=== PATIENT | male | born 1980 | race Caucasian/White ===

== ENCOUNTER 2016-09-02 15:14 | Emergency (ER) | payer OTHER ==
[~2016-09-02] VITALS: Wt 118.0 kg
[~2016-09-02 15:14] MED LIST: ACET325T33 PO; CLIN-73 PO; NAPR-260 PO; THERAFLU
[2016-09-02] MEDS ORDERED: ACETAMINOPHEN 500 MG TAB PO STA (17:55)
[2016-09-02] MEDS ORDERED: IBUPROFEN 800 MG TAB PO ONE (18:00)
--- NOTE | 2016-09-02 18:05 | ERD ---
ER Documentation Chief Complaint Date/Time DATE: 09/02/16 TIME: 18:04 Chief Complaint FEVER AND COUGHING FOR THE PAST 3 DAYS. NO DISTRESS HPI 35 year old male otherwise healthy comes in with a fever, cough x 2-3 days. He has developed a dry cough, chest pain with cough, for 3 days. No shortness of breath. He is here with a sick contact, his son who is also here for cough and fever. ROS All systems reviewed and are negative except as per history of present illness. Medications Home Meds Active Scripts Naproxen* (Naprosyn*) 500 Mg Tablet, 500 MG PO BID Y for PAIN AND/OR INFLAMMATION, #30 TAB Prov:SOLEDAD MILELR PA-C 09/02/16 Oseltamivir Phosphate* (Tamiflu*) 75 Mg Capsule, 75 MG PO BID for 5 Days, CAP Prov:SOLEDAD MILLER PA-C 09/02/16 Acetaminophen* (Tylenol*) 325 Mg Tablet, 2 TAB PO Q6 Y for PAIN AND OR ELEVATED TEMP, #20 TAB Prov:ANKIT SIMON DO 04/19/16 Naproxen* (Naprosyn*) 500 Mg Tablet, 500 MG PO BID Y for PAIN AND/OR INFLAMMATION, #30 TAB Prov:ANKIT SIMON DO 04/19/16 Clindamycin Hcl* (Clindamycin Hcl*) 300 Mg Capsule, 300 MG PO TID for 7 Days, CAP Prov:ANKIT SIMON DO 04/19/16 Reported Medications [Theraflu] No Conflict Check 10/27/10 Allergies Allergies: Coded Allergies: No Known Drug Allergies (Verified Allergy, Mild, 10/30/10) PMhx/Soc History of Surgery: No Anesthesia Reaction: No Hx Neurological Disorder: No Hx Respiratory Disorders: No Hx Cardiac Disorders: No Hx Psychiatric Problems: No Hx Miscellaneous Medical Probl: No Hx Alcohol Use: No Hx Substance Use: No Hx Tobacco Use: No Physical Exam Vitals Vital Signs Date Time Temp Pulse Resp B/P Pulse Ox O2 Delivery O2 Flow Rate FiO2 09/02/16 15:18 102.1 115 22 130/74 98 Physical Exam General: Well-developed, well-nourished. The patient appears in no acute distress. HEENT: Head is normocephalic, atraumatic. No scleral icterus. Pupils are equal , round, and reactive. Oral mucous membranes are moist. No pharyngeal erythema. Neck: Supple. Nontender. Lungs: Clear to auscultation. Normal air movement. Heart: Regular rate and rhythm. S1 and S2 are normal. No murmurs, gallops, or rubs. Abdomen: Soft, nontender, nondistended. Bowel sounds are normoactive. Extremities: No clubbing or cyanosis. Normal pulses. Moving extremities x 4. No weakness. Neurologic: Alert and oriented 3. No focal deficits. Skin: Normal turgor. No rash or lesions. Results 24 hrs Current Medications Medications (Trade) Dose Ordered Sig/Jamal Route PRN Reason Start Time Stop Time Status Last Admin Dose Admin Acetaminophen (Tylenol Tab) 1,000 mg ONCE STAT PO 09/02/16 17:55 09/02/16 17:57 DC 09/02/16 17:59 Ibuprofen (Motrin) 800 mg ONCE ONCE PO 09/02/16 18:00 09/02/16 18:01 DC 09/02/16 17:59 PROCEDURE: XR Chest. CLINICAL INDICATION: Cough, fever, body aches. TECHNIQUE: PA erect view of the chest was obtained. COMPARISON: None. FINDINGS: The cardiomediastinal silhouette is within normal limits. The lungs are clear. There is no evidence for pleural effusion, pneumothorax or pulmonary vascular congestion. The osseous structures are intact with no evidence for acute abnormality. RPTAT:HJJR IMPRESSION: No evidence for acute intrathoracic pathology. Physician Hernando Date Time Electronically viewed and signed by Grupo Jackson Physician on 09/02/2016 18:17 JR/ CC: SOLEDAD MILLER PA-C Procedures/MDM ED course: He was given Tylenol and Motrin. MDM: 35-year-old male comes with fever and cough for 2-3 days, who comes in with an acute upper respiratory infection, presumed viral. Chest x-ray was normal. The patient has a differential diagnosis of a viral upper respiratory infection, bacterial upper respiratory infection, bronchitis, pneumonia, pharyngitis, laryngitis, epiglottitis, croup, pneumonia. Patient has a normal pulmonary examination, clear breath sounds, normal pulse oximetry, with no corrective measures needed at this time. Fluids, rest, antipyretics were encouraged. Discharge her Tamiflu and encouraged to take Naprosyn for pain as well as Tylenol at home for fever. Departure Diagnosis: Primary Impression: Acute URI Condition: Good SOLEDAD MILLER PA-C Sep 02, 2016 18:05
--- NOTE | 2016-09-02 18:17 | RADRPT ---
PROCEDURE: XR Chest. CLINICAL INDICATION: Cough, fever, body aches. TECHNIQUE: PA erect view of the chest was obtained. COMPARISON: None. FINDINGS: The cardiomediastinal silhouette is within normal limits. The lungs are clear. There is no evidenc e for pleural effusion, pneumothorax or pulmonary vascular congestion. The osseous structures are i ntact with no evidence for acute abnormality. RPTAT:HJJR IMPRESSION: No evidence for acute intrathoracic pathology. Physician Hernando Date Time Electronically viewed and signed by Physician Hernando on 09/02/2016 18:17 JR/
[2016-09-02] MEDS ORDERED: NAPR-260 PO (18:33)
[2016-09-02] MEDS ORDERED: OSLT75C PO (18:33)
[2016-09-02 19:12] VITALS: BP 110/59; PULSE 83; RESP 18; TEMP 98.6
== END 2016-09-02 19:12 | disposition home or self-care (01) ==
LOC: FTE 15:14
DX: J06.9 Acute upper respiratory infection, unspecified (principal)
CPT/HCPCS: 71010; Z7610

== ENCOUNTER 2016-09-23 13:30 | Emergency (ER) | payer OTHER ==
[~2016-09-23] VITALS: Wt 117.0 kg
[~2016-09-23 13:30] MED LIST changes: +OSLT75C PO
[2016-09-23] MEDS ORDERED: KETOROLAC 60 MG INJ IM STA (16:51)
[2016-09-23] MEDS ORDERED: HYDROmorphONE 1 MG/ML SYG IM STA (16:51)
[2016-09-23] MEDS ORDERED: ONDANSETRON (ODT) 4 MG TAB ODT STA (16:51)
[2016-09-23] MEDS ORDERED: HYDR-902 PO (17:32)
[2016-09-23] MEDS ORDERED: TRAM-40 PO (17:32)
--- NOTE | 2016-09-23 17:35 | ERD ---
ER Documentation Chief Complaint Date/Time DATE: 09/23/16 TIME: 17:33 Chief Complaint LOW BACK PAIN RADIATING TO RIGHT SIDE, NON TRAUMATIC. NO NEUROMOTOR DEF HPI This 35-year-old male presents with a 2 day history of pain in his lower back rating to his right buttock. Denies any weakness but has significant pain and difficulty walking. Denies any bowel incontinence but complains of some intermittent hesitation with urine. Denies any numbness. Denies any recent injury or trauma. He has a history of sciatica. He takes ibuprofen at home. 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 ROS All systems reviewed and are negative except as per history of present illness. Medications Home Meds Active Scripts Tramadol Hcl* (Ultram*) 50 Mg Tablet, 50 MG PO Q6H Y for PAIN, #20 TAB Prov:EMILY ADORNO MD 09/23/16 Hydrocodone/Acetaminophen ([place] 10-325 Tablet) 1 Each Tablet, 1 EACH PO QID, # 14 TAB Take for pain at night. Prov:EMILY ADORNO MD 09/23/16 Naproxen* (Naprosyn*) 500 Mg Tablet, 500 MG PO BID Y for PAIN AND/OR INFLAMMATION, #30 TAB Prov:SOLEDAD MILLER PA-C 09/02/16 Oseltamivir Phosphate* (Tamiflu*) 75 Mg Capsule, 75 MG PO BID for 5 Days, CAP Prov:SOLEDAD MILLER PA-C 09/02/16 Acetaminophen* (Tylenol*) 325 Mg Tablet, 2 TAB PO Q6 Y for PAIN AND OR ELEVATED TEMP, #20 TAB Prov:ANKIT SIMON DO 04/19/16 Naproxen* (Naprosyn*) 500 Mg Tablet, 500 MG PO BID Y for PAIN AND/OR INFLAMMATION, #30 TAB Prov:ANKIT SIMON DO 04/19/16 Clindamycin Hcl* (Clindamycin Hcl*) 300 Mg Capsule, 300 MG PO TID for 7 Days, CAP Prov:ANKIT SIMON DO 04/19/16 Reported Medications [Theraflu] No Conflict Check 10/27/10 Allergies Allergies: Coded Allergies: No Known Drug Allergies (Verified Allergy, Mild, 10/30/10) PMhx/Soc History of Surgery: No Anesthesia Reaction: No Hx Neurological Disorder: No Hx Respiratory Disorders: No Hx Cardiac Disorders: No Hx Psychiatric Problems: No Hx Miscellaneous Medical Probl: No Hx Alcohol Use: No Hx Substance Use: No Hx Tobacco Use: Yes Smoking Status: Current every day smoker Physical Exam Vitals Vital Signs Date Time Temp Pulse Resp B/P Pulse Ox O2 Delivery O2 Flow Rate FiO2 09/23/16 13:37 98.7 78 20 141/81 98 Physical Exam Const: [] Alert, significant discomfort due to presumed pain. Head: Atraumatic Eyes: Normal Conjunctiva ENT: Normal External Ears, Nose and Mouth. Neck: Full range of motion..~ No meningismus. Resp: Clear to auscultation bilaterally Cardio: Regular rate and rhythm, no murmurs Abd: Soft, non tender, non distended. Normal bowel sounds Skin: No petechiae or rashes Back: No midline or flank tenderness. Tenderness in the right L4-5 and positive straight leg raise on the right. Patient is amatory with discomfort but without deficits. Ext: No cyanosis, or edema Neur: Awake and alert Psych: Normal Mood and Affect Results 24 hrs Current Medications Medications (Trade) Dose Ordered Sig/Jamal Route PRN Reason Start Time Stop Time Status Last Admin Dose Admin Hydromorphone HCl (Dilaudid) 1 mg ONCE STAT IM 09/23/16 16:51 09/23/16 16:52 DC 09/23/16 16:57 Ketorolac Tromethamine (Toradol) 60 mg ONCE STAT IM 09/23/16 16:51 09/23/16 16:52 DC 09/23/16 16:58 Ondansetron HCl (Zofran Odt) 8 mg ONCE STAT ODT 09/23/16 16:51 09/23/16 16:52 DC 09/23/16 16:57 Procedures/MDM Patient presents with acute sciatic back pain. Signs and symptoms not consistent with epidural abscess, cauda equina syndrome, neurologic deficit, genitourinary etiology. Patient was in significant pain and given Dilaudid 1 mg IM and Toradol 60 mg IM. Patient was given a short course of [place] at night for pain and tramadol for daytime pain. Patient was given instructions on back exercises. Patient was advised to follow-up with primary doctor for specialist evaluation or further treatment and evaluation otherwise return for fevers, new or worsening symptoms Departure Diagnosis: Primary Impression: Back pain Back pain location: low back pain Chronicity: acute Back pain laterality: right Sciatica presence: with sciatica Sciatica laterality: sciatica of right side Qualified Code: M54.41 - Acute right-sided low back pain with right -sided sciatica Condition: Stable Patient Instructions: Back Exercises, Lumbar, Back Pain W/ Sciatica Additional Instructions: See primary doctor for further evaluation and possible referral. Recommend exercises at home. Recheck for fevers, new symptoms. EMILY ADORNO MD Sep 23, 2016 17:35
[2016-09-23 17:51] VITALS: BP 149/76; PULSE 78; RESP 20; TEMP 98.2
== END 2016-09-23 17:52 | disposition home or self-care (01) ==
LOC: FTE 13:30
DX: M54.41 Lumbago with sciatica, right side (principal); F17.210 Nicotine dependence, cigarettes, uncomplicated
CPT/HCPCS: 96372; J1170; J1885; Z7502; Z7610

== ENCOUNTER 2016-09-30 08:30 | Emergency (ER) | payer OTHER ==
[~2016-09-30] VITALS: Wt 109.6 kg
[~2016-09-30 08:30] MED LIST changes: +HYDR-902 PO; +TRAM-40 PO
[2016-09-30] MEDS ORDERED: NA PHOSPHATE/BIPHOS 133 ML ENEMA PR ONE (09:30)
--- NOTE | 2016-09-30 10:10 | RADRPT ---
PROCEDURE: Abdominal Series. CLINICAL INDICATION: Abdominal pain. Constipation. TECHNIQUE: Two views of the abdomen. COMPARISON: None. FINDINGS: There is a nonspecific bowel gas pattern. There is no evidence of large or small bowel obstruction. There is moderate retained colonic stool. There are no abnormal calcifications overlying the urinary tracts. The osseous structures are unremarkable. IMPRESSION: 1. Moderate retained colonic stool, compatible with given history of constipation. RPTAT: KK .Tyrone Burnett MD, MD Date Time Electronically viewed and signed by .Tyrone Burnett MD, on 09/30/2016 10:09 .B/
[2016-09-30] MEDS ORDERED: POLY17PO6 PO (11:09)
[2016-09-30] MEDS ORDERED: DOCU-144 PO (11:09)
--- NOTE | 2016-09-30 11:13 | ERD ---
ER Documentation Chief Complaint Date/Time DATE: 09/30/16 TIME: 11:11 Chief Complaint abd pain with constipation after taking pain meds for sciatica HPI This is a 35-year-old female presents to the ER with constipation for the last week. Patient has been taking Mills about 6 times a day for his sciatica and states that it is now difficult for him to have a bowel movement. Patient did have one small bowel movement 3 days ago. He does admit to abdominal pain that is mostly located in the left lower quadrant. Abdominal pain is described as pressure-like and he feels bloated. Pain is constant. He does have nausea he denies vomiting. She tried taking laxatives however did not work. He denies any fever or chills. ROS 12 point review of systems was done, all negative except per HPI. Medications Home Meds Active Scripts Docusate Sodium* (Colace*) 100 Mg Capsule, 100 MG PO TID, #30 CAP Prov:ADITI MAR 09/30/16 Polyethylene Glycol* (Miralax*) 17 Gm Powd.pack, 17 GM PO DAILY, #7 Prov:ADITI MAR 09/30/16 Tramadol Hcl* (Ultram*) 50 Mg Tablet, 50 MG PO Q6H Y for PAIN, #20 TAB Prov:EMILY ADORNO MD 09/23/16 Hydrocodone/Acetaminophen ([place] 10-325 Tablet) 1 Each Tablet, 1 EACH PO QID, # 14 TAB Take for pain at night. Prov:EMILY ADORNO MD 09/23/16 Naproxen* (Naprosyn*) 500 Mg Tablet, 500 MG PO BID Y for PAIN AND/OR INFLAMMATION, #30 TAB Prov:SOLEDAD MILLER PA-C 09/02/16 Oseltamivir Phosphate* (Tamiflu*) 75 Mg Capsule, 75 MG PO BID for 5 Days, CAP Prov:SOLEDAD MILLER PA-C 09/02/16 Acetaminophen* (Tylenol*) 325 Mg Tablet, 2 TAB PO Q6 Y for PAIN AND OR ELEVATED TEMP, #20 TAB Prov:ANKIT SIMON DO 04/19/16 Naproxen* (Naprosyn*) 500 Mg Tablet, 500 MG PO BID Y for PAIN AND/OR INFLAMMATION, #30 TAB Prov:ANKIT SIMON DO 04/19/16 Clindamycin Hcl* (Clindamycin Hcl*) 300 Mg Capsule, 300 MG PO TID for 7 Days, CAP Prov:ANKIT SIMON DO 04/19/16 Reported Medications [Theraflu] No Conflict Check 10/27/10 Allergies Allergies: Coded Allergies: No Known Drug Allergies (Verified Allergy, Mild, 09/30/16) PMhx/Soc Medical and Surgical Hx: pt denies Medical Hx, pt denies Surgical Hx History of Surgery: No Anesthesia Reaction: No Hx Neurological Disorder: No Hx Respiratory Disorders: No Hx Cardiac Disorders: No Hx Psychiatric Problems: No Hx Miscellaneous Medical Probl: No Hx Alcohol Use: No Hx Substance Use: No Hx Tobacco Use: Yes Smoking Status: Current every day smoker Physical Exam Vitals Vital Signs Date Time Temp Pulse Resp B/P Pulse Ox O2 Delivery O2 Flow Rate FiO2 09/30/16 08:35 98.4 70 21 131/80 98 Physical Exam GENERAL: The patient is well developed and appropriate for usual state of health , in no apparent distress. HEENT: Atraumatic. CHEST: Clear to auscultation bilaterally. There are no rales, wheezes or rhonchi. HEART: Regular rate and rhythm. No murmurs, clicks, rubs or gallops. ABDOMEN: Soft, nontender and nondistended. Good bowel sounds. No rebound or guarding. No gross peritonitis. No gross organomegaly or masses. No Connell sign or McBurney point tenderness. BACK: No midline or flank tenderness NEURO: Alert and oriented. Results 24 hrs Current Medications Medications (Trade) Dose Ordered Sig/Jamal Route PRN Reason Start Time Stop Time Status Last Admin Dose Admin Sodium Biphosphate/ Sodium Phosphate (Fleet Enema) 133 ml ONCE ONCE [place] 09/30/16 09:30 09/30/16 09:31 DC 09/30/16 09:53 Procedures/MDM This is a 35-year-old male presents to the ER with constipation. At this time there is no evidence of obstruction on KUB. He was given a Fleet enema here in the ER and was able to have a bowel movement. Patient stated that he felt significantly better. He will be sent home with MiraLAX and docusate. He was advised to try to decrease narcotic intake as it can cause constipation. Patient is to follow-up with his primary care doctor within 1-2 days or return to ER sooner if symptoms worsen. My Medical decision making sure with the patient understands and agrees with plan. Departure Diagnosis: Primary Impression: Constipation Condition: Stable Patient Instructions: Constipation (Adult) Referrals: CARLITOS ASHBY (PCP) Additional Instructions: Call your primary care doctor TOMORROW for an appointment during the next 1-2 days.See the doctor sooner or return here if your condition worsens before your appointment time. ADITI MAR Sep 30, 2016 11:13
== END 2016-09-30 11:10 | disposition home or self-care (01) ==
LOC: FTE 08:30
DX: K59.00 Constipation, unspecified (principal); F17.210 Nicotine dependence, cigarettes, uncomplicated
CPT/HCPCS: 74010; Z7502; Z7610

== ENCOUNTER 2017-07-11 14:44 | Emergency (ER) | payer OTHER ==
[~2017-07-11] VITALS: Ht 172.7 cm; Wt 119.8 kg
[~2017-07-11 14:44] MED LIST changes: +DOCU-144 PO; +POLY17PO6 PO
[2017-07-11 15:12] VITALS: Ht 172.7 cm; Wt 119.8 kg
[2017-07-11] MEDS ORDERED: ONDANSETRON 4 MG INJ IV STA (17:25)
[2017-07-11] MEDS ORDERED: KETOROLAC 30 MG INJ IV STA (17:25)
[2017-07-11] MEDS ORDERED: SOD CHLORIDE 0.9% 1,000 ML IV STA (17:25)
[2017-07-11] MEDS ORDERED: morphine 4 MG/ML VIAL IV STA (17:25)
--- NOTE | 2017-07-11 18:14 | RADRPT ---
PROCEDURE: CT abdomen and pelvis without IV contrast. CLINICAL INDICATION: Abdominal pain TECHNIQUE: CT scan of the abdomen and pelvis without contrast was performed on the [employer] volumetric [address] scanner. The patient was scanned without intravenous contrast. Coronal and sagittal refo rmatted images were obtained from the axial source images. The CTDI vol is 21.18 mGy and the DLP is 1496 mGy-cm. One or more of the following dose reduction techniques were used: Automated exposure control. Adjustment of the mA and/or kV according to patient size. Use of iterative reconstruction technique. COMPARISON: None. FINDINGS: CT abdomen: The lung bases are clear. The heart size is not enlarged and is without pericardial thickening or e ffusion. The liver is without focal mass or intrahepatic biliary dilatation. The liver is enlarged measuring 20.4 cm in size with fatty infiltration. The spleen is mildly enlarged measuring 15.4 cm in size. Th e spleen is homogeneous in density. The stomach is grossly unremarkable. The pancreas as visualize d is normal. The gallbladder and biliary tree are unremarkable and there is no evidence for common bile duct dilatation. The adrenal glands are symmetric and normal. The kidneys are symmetrically u nremarkable as well. No renal calculus or obstructive uropathy or mass lesion is seen. The aorta is of normal in caliber. There is no retroperitoneal lymphadenopathy. The pavel hepatis region is clear. The large bowel is stool-filled. Mild sigmoid diverticulosis without evidence of d iverticulitis. The small and remainder of the large bowel and mesentery, as visualized, are otherwis e unremarkable. The normal appendix is identified. CT pelvis: The pelvic organs are normal. The pelvic sidewalls and inguinal regions are clear. No pelvic mass, lymphadenopathy, or free fluid is seen. No acute inflammation is seen. The urinary bladder is wit hin normal limits. The surrounding osseous structures are unremarkable. No osteolytic or osteoblastic lesion is detect ed. IMPRESSION: 1. No acute pathology in the abdomen and pelvis. 2. Hepatosplenomegaly with fatty infiltration of the liver. 3. Stool filled large bowel with mild sigmoid diverticulosis. RPTAT: HPNM Buddy Pride Physician Date Time Electronically viewed and signed by Buddy Pride Physician on 07/11/2017 18:14 /
[2017-07-11 18:32] LABS: BASOPHILS % 0.4 % (0.0-2.0); EOSINOPHILS # 0.2 10^3/ul (0.0-0.5); EOSINOPHILS % 1.6 % (0.0-7.0); HEMOGLOBIN 16.5 g/dl (14.0-18.0); LYMPHOCYTES # 2.5 10^3/ul (0.8-2.9); LYMPHOCYTES % 27.2 % (15.0-51.0); MEAN CORPUSCULAR HEMOGLOBIN 28.5 pg (29.0-33.0); MEAN CORPUSCULAR HGB CONC 35.9 g/dl (32.0-37.0); MEAN CORPUSCULAR VOLUME 79.4 fl (82.0-101.0); MEAN PLATELET VOLUME 11.8 fl (7.4-10.4); MONOCYTE # 0.7 10^3/ul (0.3-0.9); MONOCYTES % 7.2 % (0.0-11.0); NEUTROPHIL # 5.8 10^3/ul (1.6-7.5); NEUTROPHILS % 62.8 % (39.0-77.0); PLATELET COUNT 206 10^3/UL (140-415); RED BLOOD COUNT 5.79 10^6/ul (4.70-6.10); RED CELL DISTRIBUTION WIDTH 12.5 % (11.5-14.5); WHITE BLOOD COUNT 9.3 10^3/ul (4.8-10.8)
[2017-07-11 18:38] LABS: ADD UMIC YES; UR ASCORBIC ACID NEGATIVE (NEGATIVE); UR BILIRUBIN (Dip) NEGATIVE (NEGATIVE); UR BLOOD (Dip) NEGATIVE (NEGATIVE); UR CLARITY CLEAR (CLEAR); UR COLOR YELLOW (YELLOW); UR GLUCOSE (Dip) 3+ mg/dL (NEGATIVE); UR KETONES (Dip) TRACE mg/dL (NEGATIVE); UR LEUKOCYTE ESTERASE (Dip) NEGATIVE Leu/ul (NEGATIVE); UR NITRITE (Dip) NEGATIVE (NEGATIVE); UR RBC 1 /HPF (0-5); UR TOTAL PROTEIN (Dip) 3+ mg/dl (NEGATIVE); UR UROBILINOGEN (Dip) NEGATIVE (NEGATIVE)
[2017-07-11 18:52] LABS: ALBUMIN 4.4 g/dl (3.3-4.9); ALBUMIN/GLOBULIN RATIO 1.41; BILIRUBIN,INDIRECT 0.4 mg/dl (0-1.1); BILIRUBIN,TOTAL 0.4 mg/dl (0.2-1.3); CALCIUM 9.4 mg/dl (8.4-10.2); CREATININE 0.63 mg/dl (0.61-1.24); POTASSIUM 4.4 mmol/L (3.5-5.1); TOTAL PROTEIN 7.5 g/dl (6.1-8.1)
[2017-07-11] MEDS ORDERED: HYDR-906 PO (19:10)
--- NOTE | 2017-07-11 19:29 | ERD ---
ER Documentation Chief Complaint Chief Complaint Complains of back pain HPI Patient presents with a chief complaint of it over 10 back pain 3 days that is exacerbated with movement. No trauma to the area. A history of kidney stones and states that this feels similar. Associated hematuria. Last CT scan more than 1 year ago. Ibuprofen and Tylenol with minimal relief. Denies loss of bowel or bladder control, urinary retention, saddle paresthesia, fever, chills, dysuria, urinary frequency, discharge, testicular pain. Patient has no other complaints and describes no other associated manifestations. Nursing notes have been reviewed and are consistent with history given. ROS All systems reviewed and are negative except as per history of present illness. Medications Home Meds Active Scripts Hydrocodone/Acetaminophen ([place] 5-325 Tablet) 1 Each Tablet, 1 TAB PO Q6H Y for PAIN, #7 TAB Prov:DENIA TERRAZAS PA-C 07/11/17 Docusate Sodium* (Colace*) 100 Mg Capsule, 100 MG PO TID, #30 CAP Prov:ADITI MAR 09/30/16 Polyethylene Glycol* (Miralax*) 17 Gm Powd.pack, 17 GM PO DAILY, #7 Prov:ADITI MAR 09/30/16 Tramadol Hcl* (Ultram*) 50 Mg Tablet, 50 MG PO Q6H Y for PAIN, #20 TAB Prov:EMILY ADORNO MD 09/23/16 Hydrocodone/Acetaminophen ([place] 10-325 Tablet) 1 Each Tablet, 1 EACH PO QID, # 14 TAB Take for pain at night. Prov:EMILY ADORNO MD 09/23/16 Naproxen* (Naprosyn*) 500 Mg Tablet, 500 MG PO BID Y for PAIN AND/OR INFLAMMATION, #30 TAB Prov:SOLEDAD MILLER PA-C 09/02/16 Oseltamivir Phosphate* (Tamiflu*) 75 Mg Capsule, 75 MG PO BID for 5 Days, CAP Prov:SOLEDAD MILLER PA-C 09/02/16 Acetaminophen* (Tylenol*) 325 Mg Tablet, 2 TAB PO Q6 Y for PAIN AND OR ELEVATED TEMP, #20 TAB Prov:ANKIT SIMON DO 04/19/16 Naproxen* (Naprosyn*) 500 Mg Tablet, 500 MG PO BID Y for PAIN AND/OR INFLAMMATION, #30 TAB Prov:ANKIT SIMON DO 04/19/16 Clindamycin Hcl* (Clindamycin Hcl*) 300 Mg Capsule, 300 MG PO TID for 7 Days, CAP Prov:ANKIT SIMON DO 04/19/16 Reported Medications [Theraflu] No Conflict Check 10/27/10 Allergies Allergies: Coded Allergies: No Known Drug Allergies (Verified Allergy, Mild, 09/30/16) PMhx/Soc History of Surgery: Yes (back) Anesthesia Reaction: No Hx Neurological Disorder: No Hx Respiratory Disorders: No Hx Cardiac Disorders: No Hx Psychiatric Problems: No Hx Miscellaneous Medical Probl: Yes (back pain) Hx Alcohol Use: No Hx Substance Use: No Hx Tobacco Use: Yes Smoking Status: Current every day smoker Physical Exam Vitals Vital Signs Date Time Temp Pulse Resp B/P Pulse Ox O2 Delivery O2 Flow Rate FiO2 07/11/17 15:12 97.9 78 20 140/88 100 Physical Exam Const: Well-appearing. Mild distress. Back: No midline, flank or CVA tenderness. Negative straight leg raise. Range of motion decreased secondary to pain. Neur: No saddle anesthesia. Neurovascularly intact bilaterally. Eyes: Non-injected; No discharge. EOMI and LINO bilaterally. Neck: No tenderness. No cervical lymphadenopathy, or masses palpated. Supple ~ No meningismus. Pulm: Good air movement in upper and lower respiratory tracts. Clear to auscultation bilaterally. No dyspnea or stridor. Cardio: Regular rate and rhythm; No murmurs, gallops or rubs auscultated. Radia pulses 2+ bilaterally. No cyanosis noted. Capillary refill less than 2 seconds. Abd: Normal bowel sounds. No palpable mass. MS: Normal motor strength, normal tone with gross examination. Skin: No petechiae or rashes. Good turgor. Psych: Normal Mood and Affect. Result Diagram: 07/11/17181307/11/171813 Results 24 hrs Laboratory Tests Test 07/11/17 18:14 White Blood Count 9.310^3/ul Red Blood Count 5.7910^6/ul Hemoglobin 16.5g/dl Hematocrit 46.0% Mean Corpuscular Volume 79.4fl Mean Corpuscular Hemoglobin 28.5pg Mean Corpuscular Hemoglobin Concent 35.9g/dl Red Cell Distribution Width 12.5% Platelet Count 45097^3/UL Mean Platelet Volume 11.8fl Neutrophils % 62.8% Lymphocytes % 27.2% Monocytes % 7.2% Eosinophils % 1.6% Basophils % 0.4% Nucleated Red Blood Cells % 0.0/100WBC Neutrophils # 5.810^3/ul Lymphocytes # 2.510^3/ul Monocytes # 0.710^3/ul Eosinophils # 0.210^3/ul Basophils # 0.010^3/ul Nucleated Red Blood Cells # 0.010^3/ul Urine Color YELLOW Urine Clarity CLEAR Urine pH 5.0 Urine Specific [place] 1.040 Urine Ketones TRACEmg/dL Urine Nitrite NEGATIVEmg/dL Urine Bilirubin NEGATIVEmg/dL Urine Urobilinogen NEGATIVEmg/dL Urine Leukocyte Esterase NEGATIVELeu/ul Urine Microscopic RBC 1/HPF Urine Microscopic WBC 4/HPF Urine Hemoglobin NEGATIVEmg/dL Urine Glucose 3+mg/dL Urine Total Protein 3+mg/dl Sodium Level 135mmol/L Potassium Level 4.4mmol/L Chloride Level 96mmol/L Carbon Dioxide Level 25mmol/L Anion Gap 18 Blood Urea Nitrogen 13mg/dl Creatinine 0.63mg/dl Glucose Level 322mg/dl Calcium Level 9.4mg/dl Total Bilirubin 0.4mg/dl Direct Bilirubin 0.00mg/dl Indirect Bilirubin 0.4mg/dl Aspartate Amino Transf (AST/SGOT) 56IU/L Alanine Aminotransferase (ALT/SGPT) 105IU/L Alkaline Phosphatase 74IU/L Total Protein 7.5g/dl Albumin 4.4g/dl Globulin 3.10g/dl Albumin/Globulin Ratio 1.41 Lipase 43U/L Current Medications Medications (Trade) Dose Ordered Sig/Jamal Route PRN Reason Start Time Stop Time Status Last Admin Dose Admin Sodium Chloride (NS) 1,000 ml @ 1,000 mls/hr Q1H STAT IV 07/11/17 17:25 07/11/17 18:24 DC 07/11/17 18:08 Morphine Sulfate (morphine) 4 mg ONCE STAT IV 07/11/17 17:25 07/11/17 17:27 DC 07/11/17 18:07 Ondansetron HCl (Zofran Inj) 4 mg ONCE STAT IV 07/11/17 17:25 07/11/17 17:27 DC 07/11/17 18:08 Ketorolac Tromethamine (Toradol) 30 mg ONCE STAT IV 07/11/17 17:25 07/11/17 17:27 DC 07/11/17 18:32 Procedures/MDM Patient complains of right-sided back pain that radiates to his abdomen. History of kidney stones and states that this feels the same. Worse with movement. Tylenol ibuprofen with minimal relief. Patient was given morphine and Toradol in the ED with relief of symptoms. CT obtained and was largely unremarkable. Labs revealed elevated glucose and liver enzymes. No no abdominal or specifically right upper quadrant tenderness. No suspicion for ascending cholangitis, cholecystitis, pancreatitis, testicular torsion, appendicitis or other acute abdomen. I have no suspicion for mechanical obstruction including nephrolithiasis, cauda equina, or other neurovascular compromise. Most likely diagnosis is musculoskeletal strain versus sprain versus paraspinal muscle spasm. I have spoke with the patient regarding their condition and future management. They have verbally responded that they understand their status and treatment plan. The patients vitals are stable, and their current condition is appropriate for discharge. The patient will be given discharge instructions with return precautions. Departure Diagnosis: Primary Impression: Back pain Back pain location: low back pain Chronicity: acute Back pain laterality: right Sciatica presence: without sciatica Qualified Code: M54.5 - Acute right-sided low back pain without sciatica Condition: Stable Patient Instructions: Back Pain (Acute Or Chronic) Referrals: CARLITOS ASHBY (PCP) Additional Instructions: Follow up with your PCP within the next 1-3 days for a more thorough evaluation and a possible referral to a specialist. Return the the emergency department immediately if symptoms worsen or change. If you have any questions regarding medications, ask your pharmacist or us before you leave. If any adverse reactions occur while taking your medications, discontinue the treatment and return to the emergency department immediately. Take your medications as directed, and complete the entire course of treatment. DENIA TERRAZAS PA-C Jul 11, 2017 19:29
[2017-07-11 20:01] VITALS: BP 131/71; PULSE 84; RESP 20
== END 2017-07-11 20:01 | disposition home or self-care (01) ==
LOC: FTE 14:44
DX: M54.5 Low back pain (principal); F17.210 Nicotine dependence, cigarettes, uncomplicated
CPT/HCPCS: 36415; 74176; 80053; 81001; 83690; 85025; 96374; 96375; J1885; J2270; J2405; J7030; Z7502

== ENCOUNTER 2017-07-20 09:34 | Emergency (ER) | payer OTHER ==
[~2017-07-20] VITALS: Ht 177.8 cm; Wt 120.0 kg
[~2017-07-20 09:34] MED LIST changes: +HYDR-906 PO
[2017-07-20 09:40] VITALS: Ht 177.8 cm; Wt 120.0 kg
[2017-07-20] MEDS ORDERED: morphine 4 MG/ML VIAL IV STA ×2 (10:16→13:37)
[2017-07-20] MEDS ORDERED: SOD CHLORIDE 0.9% 1,000 ML IV ONE (10:30)
--- NOTE | 2017-07-20 10:38 | ERD ---
ER Documentation Chief Complaint Chief Complaint chronic back pain , worse today with blood in urine x 3 days HPI This is a 36-year-old male presenting to the emergency department for left- sided back pain that started earlier today. Patient states he has a history of chronic lower back pain however states this pain feels different. Patient states pain is the left side and travels down left leg. Pain is exacerbated by movement and changing positions. Patient is only comfortable laying flat. No numbness or tingling. No loss of sensation. No weakness. No urinary incontinence. Patient states he also noticed hematuria 3 days. No dysuria, urinary frequency or urgency. No history of kidney stones. Denies fevers or chills. No chest pain, shortness breath or difficulty breathing. Denies abdominal pain no nausea or vomiting. No diarrhea. No constipation. Patient was recently seen here on 07/11/[address] abdomen pelvis was done which was overall unremarkable. ROS All systems reviewed and are negative except as per history of present illness. Medications Home Meds Active Scripts Hydrocodone/Acetaminophen ([place] 5-325 Tablet) 1 Each Tablet, 1 TAB PO Q6H Y for PAIN, #7 TAB Prov:ROBBI STEARNS NP 07/20/17 Ibuprofen* (Motrin*) 600 Mg Tab, 600 MG PO Q6, #30 TAB Prov:ROBBI STEARNS NP 07/20/17 Hydrocodone/Acetaminophen ([place] 5-325 Tablet) 1 Each Tablet, 1 TAB PO Q6H Y for PAIN, #7 TAB Prov:DENIA TERRAZAS PA-C 07/11/17 Docusate Sodium* (Colace*) 100 Mg Capsule, 100 MG PO TID, #30 CAP Prov:ADITI MAR 09/30/16 Polyethylene Glycol* (Miralax*) 17 Gm Powd.pack, 17 GM PO DAILY, #7 Prov:ADITI MAR 09/30/16 Tramadol Hcl* (Ultram*) 50 Mg Tablet, 50 MG PO Q6H Y for PAIN, #20 TAB Prov:EMILY ADORNO MD 09/23/16 Hydrocodone/Acetaminophen ([place] 10-325 Tablet) 1 Each Tablet, 1 EACH PO QID, # 14 TAB Take for pain at night. Prov:EMILY ADORNO MD 09/23/16 Naproxen* (Naprosyn*) 500 Mg Tablet, 500 MG PO BID Y for PAIN AND/OR INFLAMMATION, #30 TAB Prov:SOLEDAD MILLER PA-C 09/02/16 Oseltamivir Phosphate* (Tamiflu*) 75 Mg Capsule, 75 MG PO BID for 5 Days, CAP Prov:SOLEDAD MILLER PA-C 09/02/16 Acetaminophen* (Tylenol*) 325 Mg Tablet, 2 TAB PO Q6 Y for PAIN AND OR ELEVATED TEMP, #20 TAB Prov:ANKIT SIMON 04/19/16 Naproxen* (Naprosyn*) 500 Mg Tablet, 500 MG PO BID Y for PAIN AND/OR INFLAMMATION, #30 TAB Prov:ALFRED,[facility] 04/19/16 Clindamycin Hcl* (Clindamycin Hcl*) 300 Mg Capsule, 300 MG PO TID for 7 Days, CAP Prov:ALFRED,[facility] 04/19/16 Reported Medications [Theraflu] No Conflict Check 10/27/10 Allergies Allergies: Coded Allergies: No Known Drug Allergies (Verified Allergy, Mild, 09/30/16) PMhx/Soc History of Surgery: Yes (back) Anesthesia Reaction: No Hx Neurological Disorder: No Hx Respiratory Disorders: No Hx Cardiac Disorders: No Hx Psychiatric Problems: No Hx Miscellaneous Medical Probl: Yes (back pain) Hx Alcohol Use: No Hx Substance Use: No Hx Tobacco Use: Yes Smoking Status: Never smoker Physical Exam Vitals Vital Signs Date Time Temp Pulse Resp B/P Pulse Ox O2 Delivery O2 Flow Rate FiO2 07/20/17 14:30 98.7 87 20 112/87 100 Room Air 07/20/17 09:40 98.1 88 18 145/78 99 Physical Exam Const: No acute distress, alert Head: Atraumatic Eyes: Normal Conjunctiva ENT: Normal External Ears, Nose and Mouth. Neck: Full range of motion..~ No meningismus. Resp: Clear to auscultation bilaterally. No wheezing, rhonchi or crackles. No stridor or labored breathing. Cardio: Regular rate and rhythm, no murmurs Abd: Soft, non tender, non distended. Normal bowel sounds. Negative Connell sign. No McBurney's point tenderness. No peritoneal signs. Skin: No petechiae or rashes Back: No midline or flank tenderness. No CVA tenderness. Positive straight leg raise to left leg to left buttock. No midline tenderness. Ext: No cyanosis, or edema Neur: Awake and alert Psych: Normal Mood and Affect Result Diagram: 07/20/17 1030 07/20/17 1030 Results 24 hrs Laboratory Tests Test 07/20/17 10:30 07/20/17 12:46 White Blood Count 8.410^3/ul Red Blood Count 6.1310^6/ul Hemoglobin 17.0g/dl Hematocrit 49.0% Mean Corpuscular Volume 79.9fl Mean Corpuscular Hemoglobin 27.7pg Mean Corpuscular Hemoglobin Concent 34.7g/dl Red Cell Distribution Width 12.4% Platelet Count 21259^3/UL Mean Platelet Volume 11.2fl Neutrophils % 73.2% Lymphocytes % 19.8% Monocytes % 5.8% Eosinophils % 0.6% Basophils % 0.2% Nucleated Red Blood Cells % 0.0/100WBC Neutrophils # 6.210^3/ul Lymphocytes # 1.710^3/ul Monocytes # 0.510^3/ul Eosinophils # 0.110^3/ul Basophils # 0.010^3/ul Nucleated Red Blood Cells # 0.010^3/ul Sodium Level 138mmol/L Potassium Level 4.2mmol/L Chloride Level 97mmol/L Carbon Dioxide Level 28mmol/L Anion Gap 17 Blood Urea Nitrogen 14mg/dl Creatinine 0.72mg/dl Glucose Level 300mg/dl Calcium Level 9.5mg/dl Total Bilirubin 0.4mg/dl Direct Bilirubin 0.00mg/dl Indirect Bilirubin 0.4mg/dl Aspartate Amino Transf (AST/SGOT) 49IU/L Alanine Aminotransferase (ALT/SGPT) 88IU/L Alkaline Phosphatase 64IU/L Total Protein 8.1g/dl Albumin 4.4g/dl Globulin 3.70g/dl Albumin/Globulin Ratio 1.18 Lipase 33U/L Urine Color YELLOW Urine Clarity CLEAR Urine pH 5.0 Urine Specific [place] 1.028 Urine Ketones NEGATIVEmg/dL Urine Nitrite NEGATIVEmg/dL Urine Bilirubin NEGATIVEmg/dL Urine Urobilinogen NEGATIVEmg/dL Urine Leukocyte Esterase NEGATIVELeu/ul Urine Microscopic RBC 1/HPF Urine Microscopic WBC 1/HPF Urine Squamous Epithelial Cells FEW/HPF Urine Bacteria FEW/HPF Urine Hemoglobin NEGATIVEmg/dL Urine Glucose 3+mg/dL Urine Total Protein 3+mg/dl Current Medications Medications (Trade) Dose Ordered Sig/Jamal Route PRN Reason Start Time Stop Time Status Last Admin Dose Admin Morphine Sulfate 4 mg 4 mg ONCE STAT IV 07/20/17 10:16 07/20/17 10:18 DC 07/20/17 10:28 Sodium Chloride (NS) 1,000 ml @ 1,000 mls/hr Q1H ONCE IV 07/20/17 10:30 07/20/17 11:29 DC 07/20/17 10:30 Morphine Sulfate (morphine) 4 mg ONCE STAT IV 07/20/17 13:37 07/20/17 13:41 DC Ketorolac Tromethamine (Toradol) 30 mg ONCE STAT IV 07/20/17 13:37 07/20/17 13:38 DC 07/20/17 14:07 Acetaminophen/ Hydrocodone Bitart ([place] (5/325)) 1 tab ONCE ONCE PO 07/20/17 14:00 07/20/17 14:01 DC 07/20/17 14:06 Procedures/MDM MDM: This is a 36-year-old male presenting to the emergency department for left- sided back pain that radiates down left leg. Patient also reports hematuria for the last 3 days. IV access obtained and patient given morphine 4 mg IV and 1 L IV fluid bolus of normal saline. Labs and urine ordered. CBC shows no significant anemia or infection. CMP shows no significant electrolyte imbalance. Normal liver enzymes. Normal lipase and glucose. Normal creatinine and BUN. UA is negative for infection. Patient given Toradol 30 mg IV and [place] 5/325 mg p.o. Pt remains stable. No weakness to extremities. No chest pain or shortness of breath. Pt has positive straight leg raise and likely has sciatica. Low suspicion for cauda equina syndrome, acute fracture, acute dislocation, epidural abscess, malignancy and AAA rupture. Differential Diagnosis includes but is not limited to back strain, sciatica, vertebral fracture, herniated disc, spinal stenosis and nephrolithiasis. Patient is appropriate for outpatient management will be given prescription for ibuprofen and [place]. Instructed patient to follow-up with primary care provider in the next 2-3 days for reassessment and additional management. Return to ED for any high fever, chest pain, difficulty breathing, shortness breath, wheezing, vomiting, diarrhea, abdominal pain or any new or worsening symptoms. Patient verbalizes understanding. All questions answered at discharge. Disclaimer: Inadvertent spelling and grammatical errors are likely due to EHR/ dictation software use and do not reflect on the overall quality of patient care. Also, please note that the electronic time recorded on this note does not necessarily reflect the actual time of the patient encounter. Departure Diagnosis: Primary Impression: Back pain Back pain location: low back pain Chronicity: acute Back pain laterality: left Sciatica presence: with sciatica Sciatica laterality: sciatica of left side Qualified Code: M54.42 - Acute left-sided low back pain with left-sided sciatica Condition: ROBBI Alvarez NP Jul 20, 2017 10:38
[2017-07-20 11:03] LABS: BASOPHILS % 0.2 % (0.0-2.0); EOSINOPHILS # 0.1 10^3/ul (0.0-0.5); EOSINOPHILS % 0.6 % (0.0-7.0); LYMPHOCYTES # 1.7 10^3/ul (0.8-2.9); LYMPHOCYTES % 19.8 % (15.0-51.0); MEAN CORPUSCULAR HEMOGLOBIN 27.7 pg (29.0-33.0); MEAN CORPUSCULAR HGB CONC 34.7 g/dl (32.0-37.0); MEAN CORPUSCULAR VOLUME 79.9 fl (82.0-101.0); MEAN PLATELET VOLUME 11.2 fl (7.4-10.4); MONOCYTE # 0.5 10^3/ul (0.3-0.9); MONOCYTES % 5.8 % (0.0-11.0); NEUTROPHIL # 6.2 10^3/ul (1.6-7.5); NEUTROPHILS % 73.2 % (39.0-77.0); PLATELET COUNT 228 10^3/UL (140-415); RED BLOOD COUNT 6.13 10^6/ul (4.70-6.10); RED CELL DISTRIBUTION WIDTH 12.4 % (11.5-14.5); WHITE BLOOD COUNT 8.4 10^3/ul (4.8-10.8)
[2017-07-20 11:32] LABS: ALBUMIN 4.4 g/dl (3.3-4.9); ALBUMIN/GLOBULIN RATIO 1.18; BILIRUBIN,INDIRECT 0.4 mg/dl (0-1.1); BILIRUBIN,TOTAL 0.4 mg/dl (0.2-1.3); CALCIUM 9.5 mg/dl (8.4-10.2); CREATININE 0.72 mg/dl (0.61-1.24); POTASSIUM 4.2 mmol/L (3.5-5.1); TOTAL PROTEIN 8.1 g/dl (6.1-8.1)
[2017-07-20 13:08] LABS: ADD UMIC YES; UR ASCORBIC ACID NEGATIVE (NEGATIVE); UR BACTERIA FEW /HPF (NONE SEEN); UR BILIRUBIN (Dip) NEGATIVE (NEGATIVE); UR BLOOD (Dip) NEGATIVE (NEGATIVE); UR CLARITY CLEAR (CLEAR); UR COLOR YELLOW (YELLOW); UR GLUCOSE (Dip) 3+ mg/dL (NEGATIVE); UR KETONES (Dip) NEGATIVE (NEGATIVE); UR LEUKOCYTE ESTERASE (Dip) NEGATIVE Leu/ul (NEGATIVE); UR NITRITE (Dip) NEGATIVE (NEGATIVE); UR RBC 1 /HPF (0-5); UR SPECIFIC GRAVITY (Dip) 1.028 (1.003-1.030); UR SQUAMOUS EPITHELIAL CELL FEW /HPF (FEW); UR TOTAL PROTEIN (Dip) 3+ mg/dl (NEGATIVE); UR UROBILINOGEN (Dip) NEGATIVE (NEGATIVE)
[2017-07-20] MEDS ORDERED: KETOROLAC 30 MG INJ IV STA (13:37)
[2017-07-20] MEDS ORDERED: HYDROCODONE/APAP (5/325) TAB PO ONE (14:00)
[2017-07-20] MEDS ORDERED: IBUP-1542 PO (14:16)
[2017-07-20] MEDS ORDERED: HYDR-906 PO (14:16)
[2017-07-20 14:30] VITALS: BP 112/87; PULSE 87; RESP 20; TEMP 98.7
== END 2017-07-20 14:29 | disposition home or self-care (01) ==
LOC: FTE 09:34
DX: M54.42 Lumbago with sciatica, left side (principal)
CPT/HCPCS: 36415; 80053; 81001; 83690; 85025; 96374; 96375; J1885; J2270; J7030; Z7502; Z7610